=== PATIENT | female | born 1960 | race Caucasian/White ===

== ENCOUNTER 2016-12-16 18:03 | Emergency (ER) | payer MEDICARE, OTHER ==
--- NOTE | ~2016-12-16 | EKG ---
PATIENT: AREN IVORY UNIT #: [id number] Ventricular Rate: 112 BPM Atrial Rate: 112 BPM P-R Interval: 134 ms QRS Duration: 64 ms Q-T Interval: 328 ms QTC Calculation(Bezet): 447 ms P Cable: 19 degrees Calculated R Cable: 20 degrees Calculated T Cable: 25 degrees Diagnosis Line: Sinus tachycardia Diagnosis Line: Low voltage QRS Diagnosis Line: ST and T wave abnormality, consider anterior Diagnosis Line: ischemia Diagnosis Line: Abnormal ECG Diagnosis Line: When compared with ECG of 16-AUG-2014 14:11, Diagnosis Line: T wave inversion now evident in Anterior leads Diagnosis Line: Confirmed by GAYATRI RIDDLE MD ([id number]) on 12/16/2016 Diagnosis Line: 10:36:52 PM INTERPRETING MD: VENKATESH JULIEN
--- NOTE | ~2016-12-16 | CT71 ---
[facility] A Service of [facility] [place] [place] RADIOLOGY TEXT RESULTS PATIENT: AREN IVORY LOCATION: [facility] : 56 UNIT #: [id number] AGE: [address]: Lashae Shelby MD SEX: F ORDER DR: [id number] [facility] [address] [place], [place] [address] [id number] E MR#: [id number] Acc #: [id number] NAME: AREN IVORY. : 1960 SEX: F STUDY DATE/TIME: 12/16/2016 20:01 UNIT: ELLY ROOM: STUDY DESCRIPTION: CT Head Wo Contrast Attending Physician: Lashae Shelby M.D. Ordering Physician: Lashea Shelby M.D. Primary Care Physician: Raven Mora M.D. MEDICAL IMAGING REPORT This report is preliminary unless electronic signature is present EXAM Noncontrast head CT. HISTORY Dizziness times 2 weeks. States just getting over the flu. COMPARISON Head CT, 08/16/2014. TECHNIQUE This CT exam was performed with one or more of the following radiation dose reduction techniques: automatic exposure control, adjustment of mA and/or kV according to patient size, and iterative reconstruction. FINDINGS Axial noncontrast images were obtained from the skull base to the vertex. Ventricular size and configuration are normal. There is no evidence of acute infarct or hemorrhage. There are no extra-axial fluid collections. No mass lesion or mass effect is seen. There are no skull fractures. IMPRESSION Normal noncontrast head CT. Dictated by... Neli Jessica M.D. THIS IS AN ELECTRONICALLY VERIFIED REPORT Neli Jessica M.D. at 12/17/2016 3:33 PM MONTY/erich TD: 12/17/2016 07:42 JOB #: [id number] [facility] A Service [facility] RADIOLOGY TEXT RESULTS PATIENT: AREN IVORY LOCATION: [facility] : 56 UNIT #: [id number] AGE: [address]: Lashae Shelby MD SEX: F ORDER DR: MEDICAL IMAGING REPORT Page 1 of 1 COPY
--- NOTE | ~2016-12-16 | CR72 ---
[facility] A Service of [facility] RADIOLOGY TEXT RESULTS PATIENT: AREN IVORY LOCATION: [facility] : 56 UNIT #: [id number] AGE: [address]: Lashae Shelby MD SEX: F ORDER DR: [id number] [facility] [address] [place], [place] [address] [id number] E MR#: [id number] Acc #: [id number] NAME: AREN IVORY. : 1960 SEX: F STUDY DATE/TIME: 12/16/2016 18:45 UNIT: [facility] ROOM: STUDY DESCRIPTION: CR Chest Single View Portable Attending Physician: Lashae Shelby M.D. Ordering Physician: Lashae Shelby M.D. Primary Care Physician: Raven Mora M.D. MEDICAL IMAGING REPORT This report is preliminary unless electronic signature is present EXAM Portable AP view of the chest COMPARISON November 25, 2015, August 16, 2014, and January 27, 2014. INDICATION A 56-year-old female with cough, dizziness and weakness for 4 days. History of breast cancer. FINDINGS Prominent breast shadow is stable over the left lung base. Surgical clips in the left axilla. Right chest port catheter is noted by internal jugular approach with the tip terminating at the cavoatrial junction or in the high right atrium, grossly stable. Cardiomediastinal silhouette is within normal limits. No pneumothorax or significant pleural effusion. No evidence of pneumonia. Mild degenerative change right acromioclavicular joint. There is a rounded opacity seen adjacent to the patient's chest port which is not appreciated previously. This appears very geometric and may be part of the port itself, measuring up to 1.5 cm. IMPRESSION 1. Geometric appearing round density measuring up to 1.5 cm seen immediately adjacent to the patient's chest port on the right chest. This may be part of the chest port itself or other object external to the patient. Pulmonary nodule is not entirely excluded but is thought less likely. It is noted that CT angiography chest is ordered for later today, and this finding would be better assessed on that study. 2. No evidence of pneumothorax, pleural effusion or pneumonia. Normal heart size. [facility] A Service of [facility] RADIOLOGY TEXT RESULTS PATIENT: AREN IVORY [id number] 56 UNIT #: [id number] AGE: [address]: Lashae Shelby MD SEX: F ORDER DR: Dictated by... Lauri Kendrick M.D. THIS IS AN ELECTRONICALLY VERIFIED REPORT Lauri Kendrick M.D. at 12/17/2016 11:51 AM Mona TD: 12/17/2016 05:57 JOB #: [id number] MEDICAL IMAGING REPORT Page 1 of 1 COPY
--- NOTE | ~2016-12-16 | CT16 ---
[facility] A Service of [facility] RADIOLOGY TEXT RESULTS PATIENT: AREN IVORY LOCATION: [facility] : 56 UNIT #: [id number] AGE: [address]: Lashae Shelby MD SEX: F ORDER DR: [id number] [facility] [address] [place], [place] [address] [id number] E MR#: [id number] Acc #: [id number] NAME: AREN IVORY. : 1960 SEX: F STUDY DATE/TIME: 12/16/2016 20:09 UNIT: [facility] ROOM: STUDY DESCRIPTION: CT Angio Chest for PE Attending Physician: Lashae Shelby M.D. Ordering Physician: Lashae Shelby M.D. Primary Care Physician: Raven Mora M.D. MEDICAL IMAGING REPORT This report is preliminary unless electronic signature is present EXAM CT chest PE protocol. HISTORY Dizziness x 2 weeks. Patient getting over the flu. TECHNIQUE This CT exam was performed with one or more of the following radiation dose reduction techniques: automatic exposure control, adjustment of mA and/or kV according to patient size, and iterative reconstruction. FINDINGS Axial images form through the chest following IV contrast. 3-D sagittal coronal reconstructed images reviewed at a workstation. Pulmonary parenchyma unremarkable. Trachea bronchi appear normal. The normal enhanced of the pulmonary arteries. No evidence of embolus. Heart size within normal limits. The aorta free dissection or aneurysm. Upper abdomen unremarkable. Osseous structures and thoracic inlet appear normal. Indwelling venous access port noted over the right anterior chest. IMPRESSION No acute intrathoracic abnormality identified. Dictated by... Neli Jessica M.D. THIS IS AN ELECTRONICALLY VERIFIED REPORT Neli Jessica M.D. at 12/17/2016 3:33 PM MONTY/cortez [facility] A Service of [facility] RADIOLOGY TEXT RESULTS PATIENT: RAEN IVORY LOCATION: [facility] : 56 UNIT #: [id number] AGE: [address]: Lashae Shelby MD SEX: F ORDER DR: TD: 12/17/2016 07:37 JOB #: [id number] MEDICAL IMAGING REPORT Page 1 of 1 COPY
[~2016-12-16 18:03] MED LIST: ALBUTEROL20 ml INH; BENTYL20 MG PO; CIPRO PO; ENDOXCIN 4%-1%1 EACH TOP; LEVAQUIN750 M1 PO; LIDODERM30 EA TOP; LISINOPRIL PO; LISINOPRIL10 MG PO; MULTI-VITAMIN1 TAB; NASACORT AQ16.5 GM; NEXIUM; NEXIUM PO; PHENERGAN; PHENERGAN25 M1 PO; POTASSIUM CHLO10 ME1 PO; PYRIDIUM100 MG PO; SOMA; SOMA PO; TORADOL10 MG PO; VICODIN; VICODIN ES 7.51 EAC1 PO; VICODIN ES 7.51 EACH PO; VIT E; WELLBUTRIN SR; ZOFRAN PO; ZOMIG ZMT5 MG/TAB; ZOMIG5 MG PO
[2016-12-16 18:53] LABS: BASOPHIL% 0.5 % (0-2.5); EOSINOPHIL# 0.1 X10e3 (0-0.7); EOSINOPHIL% 1.2 % (0.0-7.0); HEMATOCRIT 42.1 % (35.0-45.0); HEMOGLOBIN 13.8 gm/dL (12.0-16.0); LYMPHOCYTE# 2.1 X10e3 (1.0-3.5); LYMPHOCYTE% 28.6 % (17.0-45.0); MEAN CELL VOLUME 88.6 FL (83-96); MEAN CORPUSCULAR HEMOGLOBIN 29.2 PG (28-34); MEAN CORPUSCULAR HGB CONC 32.9 g/dL (30-36); MEAN PLATELET VOLUME 7.8 FL (6.5-11.5); MONOCYTE# 0.5 X10e3 (0-1.0); MONOCYTE% 7.1 % (3.0-12.0); NEUTROPHIL# 4.7 X10e3 (1.5-7.1); NEUTROPHIL% 62.6 % (40-75); PLATELET COUNT 285 X10e3 (140-420); RED BLOOD COUNT 4.75 X10e (3.90-5.30); RED CELL DISTRIBUTION WIDTH 12.8 % (11.0-15.5); WHITE BLOOD COUNT 7.4 X10e3 (4.0-10.5)
[2016-12-16 18:54] LABS: DIFF IND NO
[2016-12-16 19:02] LABS: POC - CKMB 1.1 ng/mL (0.0-7.9); POC - TROPONIN <0.05 ng/mL (<=0.05)
[2016-12-16 19:04] LABS: PARTIAL THROMBOPLASTIN TIME 26.8 SECONDS (23.5-31.3); PROTHROMBIN TIME (PATIENT) 10.8 SECONDS (9.6-11.5)
[2016-12-16 19:16] LABS: ALBUMIN SERUM 4.1 g/dL (3.5-5.0); BILIRUBIN, DIRECT 0.1 mg/dL (0.0-0.2); BILIRUBIN,INDIRECT 0.3 mg/dL (0.0-0.9); BILIRUBIN,TOTAL 0.4 mg/dL (0.2-2.0); CALCIUM SERUM 9.6 mg/dL (8.4-10.2); CREATININE SERUM 0.8 mg/dL (0.6-1.4); GLOM FILT RATE Estimated 81.3 mL/min (>60); POTASSIUM 3.7 mmol/L (3.5-5.1); PROTEIN TOTAL SERUM 7.6 g/dL (6.0-8.3)
[2016-12-16 19:54] LABS: URINE SOURCE CLEAN CATCH
[2016-12-16 20:02] LABS: URINE APPEARANCE CLEAR; URINE BILIRUBIN NEG (NEG); URINE BLOOD NEG (NEG); URINE COLOR YELLOW; URINE GLUCOSE NEG (NEG); URINE KETONE NEG (NEG); URINE LEUKOCYTE ESTERASE 1+ (NEG); URINE NITRATE NEG (NEG); URINE PROTEIN NEG (NEG); URINE SPECIFIC GRAVITY 1.011 (1.003-1.035); URINE UROBILINOGEN 0.2 MG/DL (NEG)
[2016-12-16 20:06] LABS: CULTURE INDICATED? YES; URBCS1 AUWI 0-2 /[HPF] (0-2); URINE BACTERIA AUWI NEG (NEGATIVE); URINE SQUAMOUS EPITHELIAL CELL OCC /[HPF]
[2017-01-13] MEDS ORDERED: ZOFRAN PO (08:55)
== END 2016-12-16 22:00 | disposition home or self-care (01) ==
LOC: CED 18:03
PROVIDERS: Student in an Organized Health Care Education/Training Program
DX: E86.0 Dehydration (principal); I10 Essential (primary) hypertension; Z90.710 Acquired absence of both cervix and uterus; Z79.899 Other long term (current) drug therapy
CPT/HCPCS: 36415; 70450; 71010; 71275; 80048; 80076; 81003; 82553; 83605; 84484; 85025; 85610; 85730; 87040; 87086; 93005; 96361; 96374; 99284; J2405; Q9967

== ENCOUNTER → 2017-01-13 | Day surgery (SDC) | payer MEDICARE, OTHER ==
--- NOTE | ~2017-01-13 | OR ---
Unit #: [id number] #: [id number] Patient: AREN IVORY [id number] [address] [place], [place] [address] [id number] O MR#: [id number] NAME: AREN IVORY ROOM: Date of Procedure: 01/13/2017 Admission Date: 01/13/2017 Surgeon: Mitch Castellanos M.D. : 1960 Attending Physician: Mitch Castellanos M.D. Primary Care Physician: Raven Mora M.D. OPERATIVE REPORT PREOPERATIVE DIAGNOSES 1. Degenerative lumbar disk disease, back pain, radiculopathy, spinal stenosis. 2. Cervical disk disease, neck pain and cervical radiculopathy. POSTOPERATIVE DIAGNOSES 1. Degenerative lumbar disk disease, back pain, radiculopathy, spinal stenosis. 2. Cervical disk disease, neck pain and cervical radiculopathy. PROCEDURE PERFORMED 1. Lumbar epidural steroid injection with intravenous sedation under fluoroscopic guidance for needle localization. 2. Cervical epidural steroid injection with fluoroscopic guidance for needle localization. HISTORY The patient is a 56-year-old female with return of neck and left greater than right upper extremity pain, back and bilateral lower extremity pain. She has degenerative disk disease, most significant at L5-S1 with also significant neural foraminal stenosis at L3-L4 and L5-S1. She has degenerative cervical disk disease from C4 through C7 with bilateral neuroforaminal stenosis. She is a poor surgical candidate. She was treated medically with p.r.n. epidural steroid injections. Last injections were completed approximately 7 months ago. She had greater than 70% improvement until just recently. Based on history, pathology, and symptomatology, plan is to repeat epidural steroid injection. She has generally in the past done best with a series of 2 injections by a few weeks. We will likely do a second injection unless she gets a very good response to both her neck and back. DESCRIPTION OF PROCEDURE The patient was placed in a seated position. Standard monitors were applied. Then, 2 mg of Versed were given for sedation and anxiolysis, which were adequate. Vital signs remained stable. Sterile prep and drape then of the lumbar area was performed. The skin then at the L5 level was localized with 1% lidocaine. An 18-gauge [employer] needle was then advanced via loss of resistance technique and fluoroscopic guidance in toward the epidural space. After confirming proper positioning with fluoroscopy and radiographic contrast, 80 mg of Depo-Medrol and 4 mL of 0.125% bupivacaine were deposited. The patient tolerated this part of procedure well. Unit #: [id number] #: [id number] Patient: AREN IVORY CERVICAL EPIDURAL STEROID INJECTION WITH FLUOROSCOPIC GUIDANCE: A separate kit was used to sterilely prep and drape the patient's cervical spine. The skin then at the C5-C6 level was localized with 1% lidocaine. An 18-gauge Hustead needle was then advanced via hanging drop technique and fluoroscopic guidance in toward the epidural space. The patient did not complain of pain or paresthesia. After confirming proper positioning with fluoroscopy and radiographic contrast, 80 mg Depo-Medrol and 2 mL of 0.25% bupivacaine were deposited. The patient tolerated the procedure otherwise well and was discharged to the recovery room in stable condition. Dictated by... Mely Ellis/nat TD: 01/13/2017 14:05 JOB #: [id number] OPERATIVE REPORT Page 1 of 1 X Mitch Castellanos MD X PROCEDURE OPERATIVE NOTE
== END | disposition home or self-care (01) ==
LOC: CCSC 08:29
DX: M51.16 Intervertebral disc disorders with radiculopathy, lumbar region (principal); M50.122 Cervical disc disorder at C5-C6 level with radiculopathy; M50.121 Cervical disc disorder at C4-C5 level with radiculopathy; M50.123 Cervical disc disorder at C6-C7 level with radiculopathy; M99.71 Connective tissue and disc stenosis of intervertebral foramina of cervical region; M99.73 Connective tissue and disc stenosis of intervertebral foramina of lumbar region; I10 Essential (primary) hypertension; K21.9 Gastro-esophageal reflux disease without esophagitis; G43.909 Migraine, unspecified, not intractable, without status migrainosus
CPT/HCPCS: J1040; J2250

== ENCOUNTER → 2017-01-27 | Day surgery (SDC) | payer MEDICARE, OTHER ==
--- NOTE | ~2017-01-27 | OR ---
Unit #: [id number] #: [id number] Patient: AREN IVORY [id number] [address] [address] [id number] O MR#: [id number] NAME: AREN IVORY. ROOM: Date of Procedure: 01/27/2017 Admission Date: 01/27/2017 Surgeon: Mitch Castellanos M.D. : 1960 Attending Physician: Mitch Castellanos M.D. Primary Care Physician: Raven Mora M.D. OPERATIVE REPORT PREOPERATIVE DIAGNOSES 1. Degenerative lumbar disk disease. 2. Back pain. 3. Radiculopathy. Secondary diagnoses; 1. Degenerative cervical disk disease. 2. Neck pain. 3. Cervical radiculopathy. POSTOPERATIVE DIAGNOSES 1. Degenerative lumbar disk disease. 2. Back pain. 3. Radiculopathy. Secondary diagnoses; 1. Degenerative cervical disk disease. 2. Neck pain. 3. Cervical radiculopathy. PROCEDURES PERFORMED 1. Lumbar epidural steroid injection with intravenous sedation and fluoroscopic guidance for needle localization. 2. Cervical epidural steroid injection with fluoroscopic guidance for needle localization. INDICATIONS FOR PROCEDURE The patient is a 56-year-old female with previously mentioned diagnosis. She is not a surgical candidate. She has degenerative disk disease at L5-S1, neural foraminal stenosis at L3-L4 and L5-S1, cervical degenerative disk disease from C4 through C7 with bilateral neuroforaminal stenosis. Epidural steroid injections have helped from the past for about 6 months. She had return of symptoms with repeat injections about two weeks ago, which resulted about 40% to 50% settling in her neck, left upper extremity, back, and lower extremity pains. Plan is to repeat second injection at this point. The patient has always done better with a series of two rather than single injections. DESCRIPTION OF PROCEDURE 1. The patient was placed in a seated position. Standard monitors were applied. A 2 mg of Versed were given for sedation and anxiolysis, which were adequate. Vital signs remained stable. Sterile prep and drape then of the lumbar area was performed. The skin at the L4-L5 level was localized with 1% lidocaine. An 18-gauge Dryad needle was then advanced Unit #: [id number] #: [id number] Patient: AREN IVORY via loss of resistance technique and fluoroscopic guidance in toward the epidural space. After confirming proper positioning with fluoroscopy and radiographic contrast, a dose of 80 mg of Depo-Medrol and 4 mL of 0.125% bupivacaine were deposited. The patient tolerated this part of procedure well. 2. Cervical epidural steroid injection with fluoroscopic guidance: A separate kit was used to sterilely prep and drape the patient's cervical spine. The skin then at the C5-C6 level was localized with 1% lidocaine. An 18-gauge IRItead needle was then advanced via hanging drop technique and fluoroscopic guidance in toward the epidural space. After confirming proper positioning with fluoroscopy and radiographic contrast, 80 mg of Depo-Medrol and 1 mL of 0.25% bupivacaine were deposited. The patient tolerated the procedure otherwise well and was discharged to the recovery room in stable condition. Dictated by... Mely Ellis/nat TD: 01/27/2017 12:42 JOB #: [id number] OPERATIVE REPORT Page 1 of 1 X Mitch Castellanos MD X PROCEDURE OPERATIVE NOTE
== END | disposition home or self-care (01) ==
LOC: CCSC 10:11
DX: M51.17 Intervertebral disc disorders with radiculopathy, lumbosacral region (principal); M99.73 Connective tissue and disc stenosis of intervertebral foramina of lumbar region; M99.74 Connective tissue and disc stenosis of intervertebral foramina of sacral region; M50.121 Cervical disc disorder at C4-C5 level with radiculopathy; M50.122 Cervical disc disorder at C5-C6 level with radiculopathy; M50.123 Cervical disc disorder at C6-C7 level with radiculopathy; I10 Essential (primary) hypertension; K21.9 Gastro-esophageal reflux disease without esophagitis; G43.909 Migraine, unspecified, not intractable, without status migrainosus; Z88.2 Allergy status to sulfonamides; Z79.899 Other long term (current) drug therapy; Z79.891 Long term (current) use of opiate analgesic
CPT/HCPCS: J1040; J2250

== ENCOUNTER → 2017-02-10 | Day surgery (SDC) | payer MEDICARE, OTHER ==
--- NOTE | ~2017-02-10 | OR ---
Unit #: [id number] #: [id number] Patient: AREN IVORY [id number] [address] [address] [id number] O MR#: [id number] NAME: AREN IVORY ROOM: Date of Procedure: 02/10/2017 Admission Date: 02/10/2017 Surgeon: Mitch Castellanos M.D. : 1960 Attending Physician: Mitch Castellanos M.D. Primary Care Physician: Raven Mora M.D. OPERATIVE REPORT PREOPERATIVE DIAGNOSES 1. Neck pain, cervical radiculopathy, degenerative cervical disk disease. 2. Low back pain, radiculopathy, degenerative lumbar disk disease. POSTOPERATIVE DIAGNOSES 1. Neck pain, cervical radiculopathy, degenerative cervical disk disease. 2. Low back pain, radiculopathy, degenerative lumbar disk disease. PROCEDURES PERFORMED 1. Lumbar epidural steroid injection with intravenous sedation and fluoroscopic guidance for needle localization. 2. Cervical epidural steroid injection with fluoroscopic guidance for needle localization. INDICATIONS FOR PROCEDURE The patient is a 56-year-old female, who has had a return of neck and left greater than right upper extremity pain, back and bilateral lower extremity pain due to previously mentioned known pathology. There was significant degenerative lumbar disk disease especially at L5-S1 associated with neural foraminal stenosis at L3-L4 and L5-S1. There is cervical disk and facet disease from C4 through C7. The patient was last treated with epidural steroids about 7 months ago and did very well until recently. She has had 2 injections done over the last several weeks, and gotten added improvement. She is not yet back to normal baseline she is able to achieve, so we are going to proceed with repeat injections at this point. The patient will then follow up back at the pain center. DESCRIPTION OF PROCEDURE Procedure #1: The patient was placed in a seated position. Standard monitors were applied. 2 mg of Versed were given for sedation and anxiolysis, which were adequate. Vital signs remained stable. Sterile prep and drape then of the lumbar area was performed. The skin then at the L4-L5 level was localized with 1% lidocaine. An 18-gauge R2G needle was then advanced via loss of resistance technique and fluoroscopic guidance in toward the epidural space. The patient did not complain of pain or paresthesia. After confirming proper positioning with fluoroscopy and radiographic contrast, 80 mg of Depo-Medrol and 4 mL of 0.125% bupivacaine were deposited. The patient tolerated this part of procedure well. Procedure #2: Cervical epidural steroid injection with fluoroscopic guidance. A separate kit was used to sterilely prep and drape the Unit #: [id number] #: [id number] Patient: AREN IVORY patient's cervical spine. The skin then at the C5-C6 level was localized with 1% lidocaine. An 18-gauge R2G needle was then advanced via hanging drop technique and fluoroscopic guidance in toward the epidural space. After confirming proper positioning with fluoroscopy and radiographic contrast, 80 mg of Depo-Medrol and 2 mL of 0.25% bupivacaine were deposited. The patient tolerated the procedure otherwise well and was discharged to the recovery room in stable condition. Dictated by... Mely Ellis/nat TD: 02/11/2017 00:05 JOB #: [id number] OPERATIVE REPORT Page 1 of 1 X Mitch Castellanos MD X PROCEDURE OPERATIVE NOTE
== END | disposition home or self-care (01) ==
LOC: CCSC 09:33
DX: M51.17 Intervertebral disc disorders with radiculopathy, lumbosacral region (principal); M50.122 Cervical disc disorder at C5-C6 level with radiculopathy; M50.121 Cervical disc disorder at C4-C5 level with radiculopathy; M50.123 Cervical disc disorder at C6-C7 level with radiculopathy; M48.06 Spinal stenosis, lumbar region; M48.07 Spinal stenosis, lumbosacral region; M53.82 Other specified dorsopathies, cervical region; I10 Essential (primary) hypertension; G43.909 Migraine, unspecified, not intractable, without status migrainosus; K21.9 Gastro-esophageal reflux disease without esophagitis; Z79.891 Long term (current) use of opiate analgesic; Z79.899 Other long term (current) drug therapy
CPT/HCPCS: J1040; J2250